=== PATIENT | female | born 1990 | race Caucasian/White ===

== ENCOUNTER 2021-10-09 15:52 | Outpatient (CLI) | payer BC, SELFPAY ==
[2021-10-10 14:43] LABS: Strep B DNA Probe Negative (Negative)
== END 2021-10-09 15:53 | disposition home or self-care (01) ==
LOC: NFLDREF 15:52
PROVIDERS: PCP Family Medicine; Visit Provider Physician Assistant
DX: Z34.93 Encounter for supervision of normal pregnancy, unspecified, third trimester (principal); Z3A.36 36 weeks gestation of pregnancy
CPT/HCPCS: 87081; 87653

== ENCOUNTER 2021-10-31 20:41 | Outpatient (CLI) | payer BC, SELFPAY ==
[2021-10-31 21:17] VITALS: BP 107/69; PULSE 70
[2021-10-31 21:24] VITALS: RESP 16; TEMP 36.8
--- NOTE | 2021-11-13 08:36 | PC.OBNST ---
NST Note NST Note Start: 10/31/21 20:54 Freq: ONCE Status: Discharge Protocol: Document 10/31/21 22:44 VI (Rec: 10/31/21 22:47 VI [id number]) NST Note 2 Para (# of births) 0 EDC 11/02/21 Patient Presented with Complaint(s) of Contractions/cramping Reactive Yes Appropriate for Gestational Age Yes SHERRY Perry RNC Date 10/31/21 Reactive Yes Appropriate for Gestational Age Yes SHERRY Morrison RNC Date 10/31/21 OB NST charge Yes The provider's electronic signature indicates the NST is reactive/appropriate for gestational age. *Note to provider: If an addendum is required, open the patient's chart and click on the note under the Nurse/Allied Health tab.
== END 2021-10-31 22:47 | disposition home or self-care (01) ==
LOC: OB OUT 20:43 → OB 22:29
PROVIDERS: PCP Family Medicine; Visit Provider Advanced Practice Midwife
DX: Z34.93 Encounter for supervision of normal pregnancy, unspecified, third trimester (principal)
CPT/HCPCS: 59025; 99213

== ENCOUNTER 2021-11-02 12:30 | Inpatient (IN) | payer BC, SELFPAY ==
[2021-11-02] VITALS (72 sets, daily range): BP systolic 118–148; BP diastolic 57–86; PULSE 75–178; RESP 16–18; TEMP 36.6–37.2; O2SAT 82–100; BMI 32.4
[2021-11-02] MEDS: LACTATED RINGERS 1000 ML 1,000 ML IV (13:50)
--- NOTE | 2021-11-02 13:58 | W.PM.LDBA ---
Subjective History of Present Illness Time Seen by Provider: 13:59 Date Seen: 11/02/21 Narrative: Kathie is a 31 year old with (surprise)fetus at 40w0d GA. Normal movements. Contractions painful, getting stronger. Denies loss of fluid. Her full history and physical was dictated by on 10.15.2021; please see this for greater details. Blood type is Rh positive. She is GBS negative. Received Tdap. She is rubella immune. OB - H&P: Exam Physical Exam: Vital signs: Temp Pulse Resp BP Pulse Ox 98.9 F 85 18 138/79 100 11/02/21 13:09 11/02/21 13:13 11/02/21 13:09 11/02/21 13:13 11/02/21 13:55 Constitutional: Constitutional: no acute distress Routine Respiratory Exam: Comments: Normal respiratory effort. No accessory muscle use, cough, wheezing. Routine Cardiovascular Exam: Cardiovascular: RRR Detailed Labor and Delivery Exam: Patient Gravid: yes Dilation (cm): 4 Effacement (%): 100 Cervix position: anterior Consistency: soft Contraction frequency (min): 3 Fetus (Single): Station: -1 Monitor Accelerations: Present Monitor Decelerations: None Correction Variability: Moderate (11-25) Routine Extremities Exam: Extremities: Present normal inspection Routine Neurological Exam: Present alert, CN II-XII intact and normal speech Routine Psychiatric Exam: Present normal affect and cooperative OB - Problem Based A/P Additional Plan (1) Normal labor: Problem details: Strong painful contractions Q2-3min, with resultant cervical change. Intact membranes. GBS negative. Rh positive. Status: Acute Plan Admit to Center. Epidural. Consider AROM. Anticipate vaginal .
[2021-11-02 14:17] LABS: Hemoglobin* 11.3 gm/dL (12.0-16.0); Platelet Count* 277 K/uL (140-440)
[2021-11-02] MEDS: fentaNYL 100 MCG/2 ML inj EPIDURAL (14:38)
[2021-11-02] MEDS: LIDOCAINE 2% (PF) 5 ML VIAL EPIDURAL (14:49)
[2021-11-02] MEDS: LACTATED RINGERS 1000 ML 1,000 ML 125 ML IV (14:50)
[2021-11-02] MEDS: ROPIVACAINE 0.2% 100 ml 100 ML 12 MG EPIDURAL (14:51)
[2021-11-02 14:52] LABS: SARS PCR* Negative SARS-CoV-2 (Negative)
--- NOTE | 2021-11-02 15:12 | P.ANBPRC_ITS ---
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[employer], 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 Non-smoker Rarely consumes alcohol Smoking Status: Never smoker Meds Home Medications and Allergies Home Medications Medication Instructions Recorded Confirmed Type aspirin 81 mg chewable tablet 81 mg PO DAILY tab 10/09/21 11/02/21 History docosahexaenoic acid 200 mg mg PO DAILY 10/09/21 10/29/21 History capsule ( DHA) ferrous sulfate 142 mg (45 mg 142 mg PO BID tab 10/09/21 11/02/21 History iron) tablet,extended release Allergies Allergy/AdvReac Type Severity Reaction Status Date / Time sulfisoxazole Allergy Severe Rash Verified 11/02/21 01:22 Erythromycin Allergy Severe Rash Uncoded 11/02/21 01:22 Results Labs Labs: Laboratory Results - last 24 hr 11/02/21 11/02/21 11/02/21 13:48 13:48 13:48 Hgb 11.3 L Plt Count 277 SARS-CoV-2 (PCR) Negative SARS-CoV-2 Blood Type O Positive Antibody Screen NEGATIVE Vital Signs Vital Signs: Last Vital Signs Temp 98.9 F 11/02/21 13:09 Pulse 85 11/02/21 15:07 Resp 18 11/02/21 13:09 BP 125/68 11/02/21 15:07 Pulse Ox 98 11/02/21 15:10 Weight: 91.172 kg Height: 167.64 cm Anesthesia Procedures Epidural Insertion Patient Location: OB Start Time: 14:00 Stop Time: 15:00 Start Date: 11/02/21 Stop Date: 11/02/21 Reason for Block: procedure for pain Patient Position: sitting Performed By: Trish Lara Preanesthetic Checklist: IV checked, site marked, risks and benefits discussed, monitors and equipment checked, pre-op evaluation, timeout performed and anesthesia consent Prep: chlorhexidine gluconate Monitoring: blood pressure monitoring, continuous pulse oximetry and heart rate Approach: midline Vertebral Space: lumbar (1-5) Epidural Technique: TYRONE saline Needle Type: Tuohy needle Injection Technique: continuous catheter Needle gauge: 17 Needle Insertion Depth (cm): 8 Catheter Type: multi-orifice Catheter at skin depth (cm): 15 Test Dose Result: negative and lidocaine 1.5% with epinephrine 1 to 200,000 Events: other (First attempt done by another [employer]ING [employer]OL OPERATOR, blood aspirated from catheter upon placement. Catheter removed by O[employer] TOOL OPERATOR and following epidural placed by Nabor Lara CRNA. )
[2021-11-02] MEDS: OXYTOCIN 30 unit/500 ML in NS 30 UNIT/500 ML BAG 300 UNIT IVPB (17:21)
[2021-11-02] MEDS: LIDOCAINE 1 % PF 30 ML INJECTION (17:37)
--- NOTE | 2021-11-02 18:46 | PM.OBPRCVD ---
Procedure Delivery date: 11/02/21 Procedure Done: Global Procedure Details: After complete cervical dilation, patient began expulsive efforts. Because of FHR decrease, patient was repositioned from back to right and then left side. A scalp electrode was placed. From her left she pushed effectively, especially after breathing through every other contraction. delivered OA, with a loose nuchal cord which was reduced. IV oxytocin drip was initiated. The viable female was dried and stimulated, then placed on maternal chest; her cord was doubly clamped and cut after more than 60 seconds. Gentle cord traction and uterine massage did not result in placental release. Attention was turned to the perineal laceration, which was repaired in the usual fashion with 3-0 Vicryl after placement of local anesthetic. Additional cord traction still did not cause placental release. Nitrous oxide was patient's choice for analgesic during manual placenta extraction. The placental was manually sheared from the endometrial plane, and extracted complete, with partial separation of cord base from chorionic plate. Patient tolerated procedure well. Placenta went to Pathology for routine evaluation. Uterus was firm postprocedure. Delivery monitor: internal FHT Route of delivery: Episiotomy description: None Laceration description: Perineal - 2nd Degree Delivery repair: Vicryl Estimated blood loss (mL): 225 Anesthesia type: Local Disposition: no change Infant Gender: Female presentation: vertex Placental Delivery Description: Manual Removal Cord Description: 3 Vessels, Nuchal Cord, Loose and Reduced
[2021-11-02] MEDS: IBUPROFEN 600 MG TABLET PO (20:51)
[2021-11-03 01:00] VITALS: BP 119/68; PULSE 84; RESP 16; TEMP 36.9; O2SAT 97
[2021-11-03 04:30] VITALS: BP 116/71; PULSE 82; RESP 16; TEMP 36.9; O2SAT 96
[2021-11-03] MEDS: ACETAMINOPHEN 500 MG TABLET 1000 MG PO (04:47)
[2021-11-03 07:33] LABS: Hemoglobin* 8.6 gm/dL (12.0-16.0)
[2021-11-03] MEDS: IBUPROFEN 600 MG TABLET PO ×3 (07:54→19:37)
[2021-11-03 09:15] VITALS: BP 121/75; PULSE 77; RESP 16; TEMP 36.9; O2SAT 97
[2021-11-03 11:53] VITALS: BP 122/72; PULSE 77; RESP 16; TEMP 36.6; O2SAT 97
[2021-11-03] MEDS: bisacodyL 5 MG TABLET DR PO (13:20)
--- NOTE | 2021-11-03 14:29 | PM.OBPNVD1 ---
OB - PN:Subj Subjective Time Seen by Provider: 14:29 Date Seen: 11/03/21 Interval history: 31yo para 1001, PPD1 from spontaneous vaginal of vigorous female at 40w0d. Lochia moderate, decreasing, without clots or malodor. Voiding freely. Daughter latching moderately well. Suspects tongue-tie. OB - PN: Obj Exam Physical Exam: Vital signs: Temp Pulse Resp BP Pulse Ox 98 F 77 16 122/72 97 11/03/21 11:53 11/03/21 11:53 11/03/21 11:53 11/03/21 11:53 11/03/21 11:53 Constitutional: Constitutional: no acute distress, obese and cooperative Routine HEENT Exam: Head: Present normal inspection Routine Neck Exam: Neck: Present full ROM Routine Respiratory Exam: Comments: Normal respiratory effort. No cough. Routine Cardiovascular Exam: Comments: Normal BP and rate. No peripheral edema. Routine Extremities Exam: Extremities: Present full ROM and normal inspection Routine Skin Exam: Skin: Present normal color and warm Routine Neurological Exam: Neurological: Present alert, CN II-XII intact, normal tone and normal speech Routine Psychiatric Exam: Psychiatric: Present normal affect, good insight and good judgment OB - PN: Obj Data Labs Labs: Laboratory Results - last 24 hr 11/02/21 11/02/21 11/03/21 13:48 13:48 07:16 Hgb 8.6 L SARS-CoV-2 (PCR) Negative SARS-CoV-2 Blood Type O Positive Antibody Screen NEGATIVE OB - PN: A/P Vaginal Delivery Assessment and Plan (1) Anemia affecting in third trimester: Problem details: hemoglobin 8.6 today. Patient asymptomatic. Status: Acute Assessment and Plan: Continue daily oral iron supplementation, as well as high-iron diet. Plan Plan: routine care Comments: Likely home tomorrow.
[2021-11-03 16:10] VITALS: BP 115/67; PULSE 76; RESP 16; TEMP 36.6; O2SAT 97
[2021-11-03 20:19] VITALS: BP 126/70; PULSE 77; RESP 18; TEMP 36.6; O2SAT 99
[2021-11-04 03:27] VITALS: BP 106/64; PULSE 69; RESP 18; TEMP 36.6; O2SAT 97
[2021-11-04] MEDS: IBUPROFEN 600 MG TABLET PO ×2 (03:43→09:32)
[2021-11-04 09:12] VITALS: BP 118/75; PULSE 69; RESP 20; TEMP 36.9; O2SAT 98
--- NOTE | 2021-11-04 11:28 | P.DS_ITS ---
DS: Providers Provider Time Seen by Provider: 11:28 Date Seen: 11/04/21 Date of admission: 11/02/21 12:30 Primary care physician: rEum Bustamante MD Admitting Clinician: Jorge Kim MD Attending Physician on discharge: Jorge Kim MD Date of Discharge: 11/04/21 DS: Diagnosis Discharge Diagnosis (1) Normal labor: Status: Acute Problem details: Intact membranes. GBS negative. Rh positive. Second degree perineal laceration. Adherent placenta removed manually, intact. (2) Anemia affecting in third trimester: Status: Acute Problem details: hemoglobin 8.6. Patient asymptomatic with activity, vital signs normal. Exam Const: Vital Signs, click to edit/add: Vital Signs - 24 hr 11/03/21 11:53 11/03/21 16:10 11/03/21 20:19 Temperature 98 F 98 F 97.8 F Pulse Rate [Pulse Oximeter] 77 76 77 Respiratory Rate 16 16 18 Blood Pressure [Ri ght Arm] 122/72 115/67 126/70 Pulse Oximetry 97 97 99 11/04/21 03:27 11/04/21 09:12 Temperature 97.9 F 98.4 F Pulse Rate [Pulse Oximeter] 69 69 Respiratory Rate 18 20 Blood Pressure [Ri ght Arm] 106/64 118/75 Pulse Oximetry 97 98 Documenting provider has reviewed patient's vital signs: yes Common normals: no apparent distress Resp: Common normals: normal respiratory effort Cardio: Common normals: regular rate Rate: regular rate GI: Common normals: non-tender Extremity: Common normals: normal to inspection Neuro: Common normals: CN's II-XII intact bilaterally Psych: Common normals: mental status grossly normal, cooperative and affect normal OB - DS: Summary Hospital Course Hospital Course: She is breast feeding. Lochia decreasing. Pain is well-controlled with ibuprofen. Voiding normally. Normal GI function. Peripartum Data delivery method: Vaginal Laceration description: Perineal - 2nd Degree complications: none [place] Gender: Female Discharge Plan: Home Status at Discharge Functional status at discharge: independent ambulation Time Spent with Patient Time attestation: Total time spent providing and/or coordinating discharge services: Time spent: Less than 30 minutes Discharge Plan Discharge Disposition: Home, Self-Care Date of Admission: 11/02/21 12:30 Attending Provider on Discharge: Jorge Kim Primary Care Provider: Erum Bustamante Condition: Stable Anticipated Discharge Date/Time: 11/04/21 11:21 Discharge Medications: New acetaminophen 500 mg Tablet 1,000 mg PO Q6H PRN (Reason: pain/fever) Qty: 90 0RF ibuprofen 600 mg Tablet 600 mg PO Q6H Qty: 90 0RF Lanolin (HPA) 100 % Cream 1 applic topical Q1H PRNQty: 47 0RF pramoxine 1 % Foam 1 applic topical QID PRNQty: 15 0RF Continued DHA 200 mg capsule PO DAILY 0RF ferrous sulfate 142 mg (45 mg iron) tablet extended release 142 mg PO BID 0RF Discontinued aspirin 81 mg tablet,chewable 81 mg PO DAILY 0RF Discharge Orders: Discharge Order (Routine); Ordered 11/04/21 Ordered By: Jorge Kim Activity Level: Activity as Tolerated Discharge Diet: High Fiber Follow Up Appointments: [facility] [Provider Group] - 12/17/21 Erum Bustamante MD [Primary Care Provider] - Forms: MyHealth Info Instructions
== END 2021-11-04 12:29 | disposition home or self-care (01) | DRG 541 ==
LOC: OB OUT 17:35 → OB 17:35
PROVIDERS: Admitting Provider Obstetrics & Gynecology; PCP Family Medicine; Visit Provider Obstetrics & Gynecology
DX: O70.1 Second degree perineal laceration during delivery (principal); O73.0 Retained placenta without hemorrhage; Z3A.40 40 weeks gestation of pregnancy; O99.02 Anemia complicating childbirth; D64.9 Anemia, unspecified; Z37.0 Single live birth
CPT/HCPCS: 01967; 36415; 59025; 85018; 85049; 86850; 86900; 86901; 87635; 88307; 99213; A9270; J2001; J2270; J2795; J3010; J7120

== ENCOUNTER 2021-11-07 13:48 | Outpatient (CLI) | payer BC, SELFPAY ==
--- NOTE | 2021-11-09 10:52 | P.LACCB_ITS ---
Consult Note - Mom Date of Visit Date of visit: 11/09/21 health consultant: Jessica Ball Patient's Information Phone number: [phone] : 2 Para: 1 Allergies sulfisoxazole Allergy (Severe, Verified 11/02/21 01:22) Rash Erythromycin Allergy (Severe, Uncoded 11/02/21 01:22) Rash Mother's Medical History: Medical History (Updated 11/06/21 @ 00:01 by ) Adherent placenta Encounter for supervision of normal first in third trimester Spontaneous Symptoms of urinary tract infection Delivery Information Delivery type: Vaginal Weeks Gestation: 40.0 Gestational Age: AGA Weight: 3.665 kg Discharge Weight: 3.53 kg Baby's Information Baby's Age at Visit: 5 days old Baby's Provider or Clinic: Dr. Pitts Jaundice: Yes (to chest) Reason for Consult Reason for Consult: pain with latch, s/p frenotomy Past Experience Past Experience: No Current Frequency of Day Feedings: every 2 - 2.5 hours Frequency of Night Feedings: about every 3 hours Both Breasts: No (mom has not nursed in the past two days d/t the pain) Pumping Pumping: Yes (mom has pumped with every feeding for the past two days) Quantity Pumped: 1 - 1.5 oz total each time Supplementing EMB Supplement: Yes (the past two days POC have supplemented with about 1 oz every 2 - 3 hours) Formula Supplement: No Baby Elimination Number of Wet Diapers a Day: every feeding Number of BM a Day: every feeding Breast/Nipple Condition Breast Information: WNL Engorgement: No Maternal Nipple Condition - Left: Short Maternal Nipple Condition - Right: Short Sore Nipples: Yes (damage to both nipples, scabbing; per mom beginning to heal) Interventions for Sore Nipples: Lansinoh Onsite Pre-Feed weight: 3.45 kg Post-Feed weight: 3506 kg Milk Transferred (mL): 56 Assessments/Interventions Assessments/Interventions: Met with mom and this now 5 day old ex- term AGA baby for consult.? Mom reports had become so painful that for the last two days she has exclusively pumped every 2 - 3 hours getting between 1 - 1.5 oz each time which POC then gave to baby.? She reports both nipples were cracked and bleeding but with the exclusive pumping she's beginning to see some healing.? Baby was se en by PCP on 11/06 and dx'd with mild ankyoglossia; her frenulum was clipped in clinic.? Mom has tried nursing once since then and reported it felt a little better. Breasts WNL- symmetrical with rounded lower quadrants, intramammary distance is < 1.5 inches.? Nipples are short but everted and don't flatten or retract on compression.? Both are damaged with some skin breakdown but also some scabbing. Baby hasn't really gained or lost any weight since her visit yesterday and is 6% below BW at DOL 5.? POC report she has equal ROM when turning her head and moving her extremities and they denied any caput/cephalohematoma; per PCP baby has somewhat of a recessed chin (not really observed by LC).? Her palate is WNL, the upper frenulum is thicker than normal and somewhat tight.? She has a strong suck on a finger.? Her tongue easily extends past the gum line, cups around the finger, and has good lateral movement.? The lower frenulum appears to be healing well. Mom latched baby to both sides- she prefers the cross cradle hold on the right and the football hold on the left.? Mom had great positioning with baby and supported her breast without blocking the areola.? Baby latched deeply, taking in all of the areola and after the first 10 seconds, mom felt a lot better stating nursing was comfortable (she reported that while the initial latch was uncomfortable, it wasn't painful like it had been).? Baby needed quite a bit of stimulation to stay awake and actively nurse, but POC did a good job with this.? After about 15 minutes mom unlatched baby and offered the other side where she nursed another 10 minutes, transferring 56 ml total. Plan: 1. Continue nursing baby every 2 - 3 hours, offering both sides and working to keep her awake and active at the breast.? Reviewed that the latch should be comfortable after the first 10 seconds and mom knows how to take her off if needed while protecting the nipple.? 2. OK to stop pumping to empty and suggested only pumping to comfort if mom is still uncomfortable after nursing.? Reviewed she may need to pump or hand express a little milk before baby nurses if her breasts are really full. 3. OK to stop supplementing and go back to exclusively nursing. 4. Will f/u with PCP for a 2 week WCC and in for a one month weight check.?
== END 2021-11-07 13:49 | disposition home or self-care (01) ==
PROVIDERS: PCP Family Medicine; Visit Provider Family Medicine
DX: Z39.1 Encounter for care and examination of lactating mother (principal)
CPT/HCPCS: 99211

== ENCOUNTER 2023-04-28 08:45 | Outpatient (CLI) | payer BC, SELFPAY | END 2023-04-28 08:46 | disposition home or self-care (01) | LOC: NFLDREF 04-29 07:29 | PROVIDERS: PCP Family Medicine; Referring Provider Family Medicine; Visit Provider Physician Assistant | DX: Z13.6 Encounter for screening for cardiovascular disorders (principal); Z13.1 Encounter for screening for diabetes mellitus | CPT/HCPCS: 80061; 82947 ==

== ENCOUNTER 2024-06-29 07:53 | Outpatient (CLI) | payer BC, SELFPAY | END 2024-06-29 07:54 | disposition home or self-care (01) | LOC: NFLDREF 06-30 05:10 | PROVIDERS: PCP Family Medicine; Referring Provider Family Medicine; Visit Provider Family Medicine | DX: E78.5 Hyperlipidemia, unspecified (principal); Z13.9 Encounter for screening, unspecified; Z13.1 Encounter for screening for diabetes mellitus | CPT/HCPCS: 80053; 80061 ==